=== PATIENT | female | born 1950 ===

== ENCOUNTER 2025-07-31 05:00 | Outpatient (RCR) | payer MEDICARE, BC, SELFPAY | END 2025-08-29 23:59 | disposition home or self-care (01) | LOC: WPT 05:00 | PROVIDERS: Visit Provider Emergency Medicine | DX: M25.552 Pain in left hip (principal) | CPT/HCPCS: 97110; 97112; 97116; 97161; 97530 ==

== ENCOUNTER 2025-09-28 10:00 | Outpatient (RCR) | payer MEDICARE, BC, SELFPAY | END 2025-09-29 23:59 | disposition home or self-care (01) | LOC: WPT 10:00 | PROVIDERS: Visit Provider Emergency Medicine | DX: M25.552 Pain in left hip (principal) | CPT/HCPCS: 97110; 97112; 97140; 97530 ==

== ENCOUNTER 2025-10-24 11:10 | Outpatient (RCR) | payer MEDICARE, BC, SELFPAY | END 2025-10-24 13:46 | disposition home or self-care (01) | LOC: WPT 11:10 | PROVIDERS: Visit Provider Emergency Medicine | DX: M25.552 Pain in left hip (principal) | CPT/HCPCS: 97110; 97112; 97116; 97530 ==